=== PATIENT | female | born 1960 ===

== ENCOUNTER 2020-07-07 09:06 | Inpatient (IN) | payer OTHER ==
[~2020-07-07] VITALS: Ht 152.4 cm; Wt 63.5 kg
[2020-07-07] MEDS ORDERED: ZIAC 2.5-6.251 EACH PO (09:25)
[2020-07-07] MEDS ORDERED: AMBIEN10 MG PO (09:25)
[2020-07-07] MEDS ORDERED: CLONAZEPAM2 MG PO (09:25)
[2020-07-15] MEDS ORDERED: TIZANIDINE HCL4 M1 (11:50)
[2020-07-15] MEDS ORDERED: DICLOFENAC POTA50 MG (11:50)
[2020-07-15] MEDS ORDERED: CLONAZEPAM1 MG (11:50)
[2020-07-15] MEDS ORDERED: DULOXETINE HCL60 MG (11:50)
[2020-07-15] MEDS ORDERED: CREON DR 12,001 EACH (11:50)
[2020-07-15] MEDS ORDERED: MIRTAZAPINE30 MG (11:51)
[2020-07-15] MEDS ORDERED: DEXILANT60 MG (11:51)
[2020-07-15] MEDS ORDERED: LYRICA200 MG (11:51)
[2020-07-15] MEDS ORDERED: COLACE100 MG PO (12:42)
[2020-07-15] MEDS ORDERED: MEDROLPACK PO (12:42)
[2020-07-15] MEDS ORDERED: DIAZEPAM5 MG PO (12:42)
[2020-07-15] MEDS ORDERED: PERCOCET 5-3251 EACH PO (12:42)
[2020-07-15] MEDS ORDERED: AMOX-CLAV 875-1 EAC1 PO (12:42)
[2020-07-15] MEDS ORDERED: NEURONTIN800 MG PO (12:43)
== END 2020-07-16 15:03 | disposition home or self-care (01) | DRG 455 ==
LOC: O/R 07-15 05:31 → SURH 07-15 09:45 → PED 07-15 15:47
PROVIDERS: ADMIT Orthopaedic Surgery Orthopaedic Surgery of the Spine; ATTEND Orthopaedic Surgery Orthopaedic Surgery of the Spine
PROC: 0SG00A0 Fusion of Lumbar Vertebral Joint with Interbody Fusion Device, Anterior Approach, Anterior Column, Open Approach (ICD-10-PCS; 2020-07-15)
PROC: 0SG0071 Fusion of Lumbar Vertebral Joint with Autologous Tissue Substitute, Posterior Approach, Posterior Column, Open Approach (ICD-10-PCS; 2020-07-15)
PROC: 07DR3ZZ Extraction of Iliac Bone Marrow, Percutaneous Approach (ICD-10-PCS; 2020-07-15)
PROC: 0SB20ZZ Excision of Lumbar Vertebral Disc, Open Approach (ICD-10-PCS; principal; 2020-07-15 14:30)
DX: M43.16 Spondylolisthesis, lumbar region (principal); M48.062 Spinal stenosis, lumbar region with neurogenic claudication; I10 Essential (primary) hypertension